=== PATIENT | female | born 1945 | race Caucasian/White ===

== ENCOUNTER 2019-09-24 10:25 | Outpatient (CLI) | payer MEDICARE, SELFPAY ==
--- NOTE | ~2019-09-24 | MM_ITS ---
EXAMINATION: MM screening [facility] [place] HISTORY: Screening mammogram, history of left breast cancer TECHNIQUE: Craniocaudal and mediolateral oblique 3-D tomosynthesis images were obtained and synthetic 2-D images were generated. CAD analysis was submitted and interpreted. COMPARISON: 08/03/2018, 01/30/2018, 01/23/2018, 01/03/2017 BREAST PARENCHYMAL COMPOSITION: There are scattered areas of fibroglandular density. FINDINGS: Lumpectomy changes are again noted in the left breast. There is also skin thickening of the left breast related to radiation change. There is no evidence of suspicious mass, calcification, or architectural distortion to suggest malignancy in either breast. There has been no suspicious interva l change. IMPRESSION: 1. No mammographic evidence of malignancy. 2. Recommend routine screening mammography in one year. BI-RADS Category 2: Benign finding(s). Reviewed, dictated and finalized at location A.
== END 2019-09-24 10:26 | disposition home or self-care (01) ==
LOC: ANHIMG 10:30
PROVIDERS: PCP Physician Assistant; Visit Provider Internal Medicine Medical Oncology
DX: Z12.31 Encounter for screening mammogram for malignant neoplasm of breast (principal)
CPT/HCPCS: 77063; 77067

== ENCOUNTER 2020-08-18 13:05 | Outpatient (CLI) | payer MEDICARE, SELFPAY ==
--- NOTE | ~2020-08-18 | DEXA_ITS ---
Bone Density Report Name: Ny Esteves Age: 75 Sex: Female Ethnicity: White Date of : 1945 Indication: postmenopausal; height loss; cancer; Referring Provider: Lauren, Qasim Study: Bone densitometry was performed. Exam Date: August 18, 2020 Accession number: [id number] Bone Density: Region BMD T-score Z-score Classification AP Spine (L1-L4) 1.160 1.0 3.6 Normal Femoral Neck (Left) 0.732 -1.1 1.1 Osteopenia Total Hip (Left) 0.878 -0.5 1.4 Normal Total Hip Bilateral Avg 0.894 -0.4 1.5 Normal Femoral Neck (Right) 0.704 -1.3 0.9 Osteopenia Total Hip (Right) 0.908 -0.3 1.6 Normal World Health Organization criteria for BMD impression classify patients as: Normal (T-score at or above -1.0), Osteopenia (T-score between -1.0 and -2.5), or Osteoporosis (T-score at or below -2.5). 10-year Fracture Risk(1): Major Osteoporotic Fracture 11% Hip Fracture 2.1% Reported Risk Factors: [place] (), Neck BMD=0.704, BMI=34.8 (1) FRAX(R) Version 3.08. Fracture probability calculated for an untreated patient. Fracture probability may be lower if the patient has received treatment. Previous Exams: Region Exam Age BMD T-score BMD Change BMD Change Date g/cm2 vs Baseline vs Previous AP Spine(L1-L4) 08/18/2020 75 1.160 1.0 0.006(0.5%)# 0.020(1.7%) 01/21/2016 70 1.140 0.8 -0.014(-1.2%)# 0.008(0.7%)# 01/14/2014 68 1.132 0.8 -0.022(-1.9%)# -0.022(-1.9%)# 04/04/2007 62 1.154 1.0 Total Hip(Left) 08/18/2020 75 0.878 -0.5 -0.036(-3.9%)# -0.046(-5.0%)* 01/21/2016 70 0.925 -0.1 0.010(1.1%)# -0.001(-0.1%)# 01/14/2014 68 0.926 -0.1 0.011(1.2%)# 0.011(1.2%)# 04/04/2007 62 0.914 -0.2 Total Hip(Right) 08/18/2020 75 0.908 -0.3 0.008(0.9%)# -0.006(-0.7%) 01/21/2016 70 0.914 -0.2 0.014(1.5%)# -0.019(-2.0%)# 01/14/2014 68 0.933 -0.1 0.033(3.7%)# 0.033(3.7%)# 04/04/2007 62 0.900 -0.3 *Denotes significance at 95% confidence level, LSC for AP Spine = 0.022 g/cm2, LSC for Total Hip = 0.027 g/cm2 Clinical Information Provided by Patient: Has used the following medications: Calcium Has the following medical conditions: Cancer Patient maximum height was 64 Menopause Age: 48 No regular weight bearing exercise Drinks caffeinated beverages Onset of menses at age 9 Number of children 3 Impression: The patient has low bone mass, based on the Right Femoral
== END 2020-08-18 13:06 | disposition home or self-care (01) ==
LOC: ANHIMG 13:07
PROVIDERS: PCP Physician Assistant; Visit Provider Physician Assistant
DX: Z78.0 Asymptomatic menopausal state (principal); M85.89 Other specified disorders of bone density and structure, multiple sites
CPT/HCPCS: 77080

== ENCOUNTER 2020-09-24 13:25 | Outpatient (CLI) | payer MEDICARE, SELFPAY ==
[2020-09-24 14:14] LABS: Basophils Percent Auto 0.5 % (0.2-1.2); Eosinophils Absolute Auto 0.2 K/mm3 (0-0.3); Eosinophils Percent Auto 2.2 % (0-4.4); Hematocrit 44.8 % (37.0-47.0); Hemoglobin 14.3 g/dL (12.0-15.0); Immature Granulocyte Absolute 0.04 K/mm3 (0.00-0.031); Immature Granulocyte Percent A 0.5 % (0-0.5); Lymphocytes Absolute Auto 1.99 K/mm3 (0.9-3.2); Lymphocytes Percent Auto 27.3 % (18.3-44.2); Mean Corpuscular HGB Conc 31.9 g/dl (32-36); Mean Corpuscular Hemoglobin 28.2 pg (26-34); Mean Corpuscular Volume 88.4 fl (80-100); Mean Platelet Volume 10.4 fl (7.4-10.4); Monocytes Absolute Auto 0.8 K/mm3 (0.1-0.6); Monocytes Percent Auto 10.5 % (2.6-8.5); Neutrophils Absolute Auto 4.3 K/mm3 (1.3-6.7); Platelet Count Result 187 k/mm3 (150-375); Red Blood Count 5.07 M/mm3 (4.2-5.4); White Blood Count 7.3 K/mm3 (4.5-10.0)
[2020-09-24 14:28] LABS: Alanine Aminotransferase 25 U/L (4-35); Albumin Level 4.3 g/dL (3.5-5.1); Alkaline Phosphatase 85 U/L (38-126); Anion Gap 6 mmol/L (8-16); Aspartate Amino Transferase 32 U/L (14-36); Bilirubin,Total 0.5 mg/dL (0.2-1.3); Blood Urea Nitrogen 26 mg/dL (7-17); Calcium 9.4 mg/dL (8.4-10.2); Carbon Dioxide 32 mmol/L (22-30); Chloride 103 mmol/L (98-107); Cholesterol 210 mg/dL (0-200); Estimated Glomerular Filt Rate > 60; Glucose 97 mg/dL (65-105); HDL Direct 64 mg/dL; Potassium 3.7 mmol/L (3.4-5.0); Sodium 141 mmol/L (137-145); Triglycerides 195 mg/dL (<150)
[2020-09-24 14:30] LABS: Add Urine Microscopic? YES; Appearance Urine Clear (Clear); Bilirubin Urine Negative (Negative); Color Urine Yellow (Yellow); Glucose Urine UA Negative (Negative); Ketones Urine Negative (Negative); Leukocyte Esterase Ur 1+ LEU/UL (Negative); Mucus Urine Rare /lpf; Nitrate Urine Negative (Negative); Protein Urine Negative (Negative); Specific Grav Ur 1.023 (1.001-1.035); Squamous Epithelial Cell Urine Moderate /hpf (Few)
[2020-09-24 14:36] LABS: Blood Urine Negative (Negative)
[2020-09-24 14:39] LABS: LDL Cholesterol Direct 103 mg/dL
[2020-09-24 16:23] LABS: Hemoglobin A1C 5.6 % (<5.7)
== END 2020-09-24 13:26 | disposition home or self-care (01) ==
LOC: ANHLAB 13:29
PROVIDERS: PCP Physician Assistant; Visit Provider Physician Assistant
DX: E78.5 Hyperlipidemia, unspecified (principal); R73.9 Hyperglycemia, unspecified; R31.21 Asymptomatic microscopic hematuria; Z79.899 Other long term (current) drug therapy
CPT/HCPCS: 36415; 80048; 80061; 80076; 81001; 83036; 84443; 85025; 87077; 87086; 87088

== ENCOUNTER 2020-11-12 14:00 | Outpatient (CLI) | payer MEDICARE, SELFPAY ==
--- NOTE | ~2020-11-12 | MM_ITS ---
EXAMINATION: MM screening [facility] HISTORY: Screening mammogram TECHNIQUE: Craniocaudal and mediolateral oblique 3-D tomosynthesis images were obtained and synthetic 2-D images were generated. CAD analysis was submitted and interpreted. COMPARISON: Serial screening mammogram examinations and right diagnostic mammogram and limited right breast ultrasound examinations dating back to 10/27/2015 BREAST PARENCHYMAL COMPOSITION: There are scattered areas of fibroglandular density. FINDINGS: There is fibroglandular asymmetry; there is history of left partial mastectomy for breast c ancer. Chronic asymmetric prominent right axillary lymph nodes are noted, dating back to 10/27/2015. There is no evidence of interval suspicious mass, calcification, or new architectural distortion to suggest m alignancy in either breast. There has been no suspicious interval change. IMPRESSION: 1. No mammographic evidence of malignancy. 2. Recommend routine screening mammography in one year. BI-RADS Category 2: Benign finding(s). Reviewed, dictated and finalized at location A.
[2020-11-12 15:33] LABS: Add Urine Microscopic? YES; Appearance Urine Clear (Clear); Bilirubin Urine Negative (Negative); Blood Urine Negative (Negative); Color Urine Yellow (Yellow); Glucose Urine UA Negative (Negative); Ketones Urine Negative (Negative); Leukocyte Esterase Ur Negative LEU/UL (NEGATIVE); Nitrate Urine Negative (Negative); Protein Urine Negative (Negative); RBC Urine 0-2 /hpf (0-2); Specific Grav Ur 1.017 (1.001-1.035); Squamous Epithelial Cell Urine Rare /hpf (Few); Urobilinogen Urine Negative mg/dL (<2.0); WBC Urine 0-3 /hpf (0-3)
== END 2020-11-12 14:01 | disposition home or self-care (01) ==
PROVIDERS: PCP Physician Assistant; Visit Provider Physician Assistant
DX: Z12.31 Encounter for screening mammogram for malignant neoplasm of breast (principal); N39.0 Urinary tract infection, site not specified
CPT/HCPCS: 77063; 77067; 81001; 87077; 87086; 87088

== ENCOUNTER 2022-01-12 11:07 | Outpatient (CLI) | payer MEDICARE, SELFPAY ==
[2022-01-12 11:37] LABS: Basophils Absolute Auto 0.1 K/mm3 (0.0-0.1); Eosinophils Absolute Auto 0.1 K/mm3 (0-0.3); Eosinophils Percent Auto 2.7 % (0-4.4); Hematocrit 44.9 % (37.0-47.0); Hemoglobin 14.1 g/dL (12.0-15.0); Immature Granulocyte Absolute 0.04 K/mm3 (0.00-0.031); Immature Granulocyte Percent A 0.8 % (0-0.5); Lymphocytes Absolute Auto 1.69 K/mm3 (0.9-3.2); Lymphocytes Percent Auto 34.5 % (18.3-44.2); Mean Corpuscular HGB Conc 31.4 g/dl (32-36); Mean Corpuscular Hemoglobin 28.2 pg (26-34); Mean Corpuscular Volume 89.8 fl (80-100); Mean Platelet Volume 10.3 fl (7.4-10.4); Monocytes Absolute Auto 0.6 K/mm3 (0.1-0.6); Monocytes Percent Auto 11.6 % (2.6-8.5); Neutrophils Absolute Auto 2.4 K/mm3 (1.3-6.7); Neutrophils Percent Auto 49.4 % (45.5-73.1); Platelet Count Result 194 k/mm3 (150-375); Red Cell Distribution Width 13.2 % (11.5-14.5); White Blood Count 4.9 K/mm3 (4.5-10.0)
[2022-01-12 11:40] LABS: Appearance Urine Clear (Clear); Bilirubin Urine Negative (Negative); Blood Urine Trace-lysed (Negative); Color Urine Yellow (Yellow); Glucose Urine UA Negative (Negative); Ketones Urine Negative (Negative); Leukocyte Esterase Ur Trace LEU/UL (NEGATIVE); Nitrate Urine Negative (Negative); Protein Urine Negative (Negative); Specific Grav Ur 1.025 (1.001-1.035); Urobilinogen Urine 0.2 mg/dL (<2.0); pH Urine 5.5 (5.0-9.0)
[2022-01-12 11:46] LABS: Mucus Urine Rare /lpf; RBC Urine 0-2 /hpf (0-2); Squamous Epithelial Cell Urine Occasional /hpf (Few); WBC Urine 0-3 /hpf (0-3)
[2022-01-12 11:50] LABS: Add Urine Microscopic? YES
[2022-01-12 11:59] LABS: LDL Cholesterol Direct 195 mg/dL
[2022-01-12 12:05] LABS: Alanine Aminotransferase 57 U/L (6-35); Albumin Level 4.5 g/dL (3.5-5.1); Alkaline Phosphatase 103 U/L (38-126); Anion Gap 3 mmol/L (8-16); Aspartate Amino Transferase 49 U/L (14-36); Bilirubin,Total 0.6 mg/dL (0.2-1.3); Blood Urea Nitrogen 19 mg/dL (7-17); Calcium 9.4 mg/dL (8.4-10.2); Carbon Dioxide 31 mmol/L (22-30); Chloride 106 mmol/L (98-107); Estimated Glomerular Filt Rate 54; Glucose 112 mg/dL (65-110); HDL Direct 74 mg/dL; Potassium 4.5 mmol/L (3.4-5.0); Sodium 140 mmol/L (137-145); Triglycerides 85 mg/dL (<150)
[2022-01-12 12:28] LABS: Cholesterol 349 mg/dL (0-200)
[2022-01-12 12:55] LABS: Hepatitis C Virus Antibody Negative (Negative)
== END 2022-01-12 11:08 | disposition home or self-care (01) ==
PROVIDERS: PCP Physician Assistant; Visit Provider Physician Assistant
DX: E78.5 Hyperlipidemia, unspecified (principal); Z11.59 Encounter for screening for other viral diseases; R31.29 Other microscopic hematuria; Z79.899 Other long term (current) drug therapy
CPT/HCPCS: 36415; 80048; 80061; 80076; 81001; 84443; 85025; 86803; 87086; 87088

== ENCOUNTER 2022-05-10 11:17 | Emergency (ER) | payer MEDICARE, SELFPAY ==
--- NOTE | 2022-05-10 11:20 | ED.SKABFB ---
HPI - Skin/Abscess/Foreign Bdy General Chief complaint: Skin/Abscess/Foreign Body Stated complaint: Rash on Body Time Seen by Provider: 05/10/22 11:52 Source: patient and RN notes reviewed Mode of arrival: ambulatory Limitations: no limitations History of Present Illness HPI narrative: 77-year-old female presents to concerns for rash to her chest and axillary area. She reports several day history of rash that is itchy and uncomfortable. She denies known triggers. Denies history of similar rash in the past. She denies any new personal snf care products. She reports she does some gardening she is not aware of any poison khoi contact. She reports she has been using Benadryl cream without relief. She denies general malaise, fatigue, fever, body aches, chills, sweats. MD complaint: rash Related Data Home Medications Medication Instructions Recorded Confirmed spironolactone 100 mg tablet 100 mg PO DIRECTED 05/10/22 05/10/22 Allergies Allergy/AdvReac Type Severity Reaction Status Date / Time No Known Allergies Allergy Unknown Verified 05/10/22 11:28 Review of Systems Review of Systems: CONSTITUTIONAL: Denies malaise, chills, sweats, or fever. EYES: Denies redness, or discharge. ENT: Denies rhinorrhea, congestion, swollen lips, swollen tongue CARDIOVASCULAR: Denies chest pain, palpitations, or edema. RESPIRATORY: Denies cough or dyspnea. GASTROINTESTINAL: Denies abdominal pain, nausea, vomiting SKIN: Reports itchy rash on the chest and the axillary areas MUSCULOSKELETAL: Denies joint pain or myalgia. NEUROLOGIC: Denies headache. All systems reviewed & are unremarkable except as noted in HPI and below [facility] Family History Family History (Updated 05/19/15 @ 15:34 by DOCTOR UNKNOWN) Father Family history of lung cancer, Onset Age: 73 Patient's father is Mother Carcinoma of colon, Onset Age: 70 Patient's mother is Sibling Family history of malignant neoplasm of esophagus, Onset Age: 72 Patient's brother is Social History Social History Smoking status: Never smoker Alcohol intake: never Comments At time of signature, agree with nursing past medical, surgical, social and family history. There is no relevant family history pertinent to the presenting complaint Exam Narrative: GENERAL: Well-appearing, well-nourished, and in no acute distress. HEAD: Normocephalic, atraumatic. EYES: PERRLA, conjunctivae clear, and EOMI. ENT: Mucous membranes moist. Oropharynx without edema, erythema or lesions. NECK: Supple. No lymphadenopathy CHEST: Clear to auscultation. No respiratory distress. HEART: Regular rate and rhythm. SKIN: Warm, dry. Erythematous patch of flaky rash noted to the chest, raised erythema with satellite papules noted under bilateral axillary areas NEURO: Alert and oriented x3. PSYCH: Normal mood and affect Course Course Emergency Course: Patient is aware of diagnosis, understands and agrees to treatment plan. Anticipatory guidance given. Patient agrees to follow-up as directed and is aware of reasons to seek care at the emergency department. Portions of this record may have been created with voice recognition software Level of Care: Express Care Visit Vital Signs Vital signs: Reviewed. MDM - Skin/Abscess/Foreign Bdy MDM Narrative Medical decision making narrative: Does not appear at this time to be erythema multiforme, bullous, SJS, TEN; no evidence at this time to suggest RMSF, endocarditis or Lyme disease; patient looks well, nontoxic and is tolerating oral intake; no neurologic signs or symptoms; no headache, photophobia or neck pain; afebrile; appropriate for initial outpatient treatment; discussed the importance of follow-up, patient agrees; question, viral exanthema, contact dermatitis, allergic dermatitis, eczema, urticaria, shingles. No soft palate or uvula edema, no tongue, lip edema or other mucosal invol
[2022-05-10 11:31] VITALS: BP 124/79; PULSE 77; RESP 18; TEMP 36.5; O2SAT 99
[2022-05-10 11:36] VITALS: BP 124/79; PULSE 77; RESP 18; TEMP 36.5; O2SAT 99
== END 2022-05-10 12:04 | disposition home or self-care (01) ==
PROVIDERS: Emergency Provider Nurse Practitioner; PCP Physician Assistant
DX: L25.9 Unspecified contact dermatitis, unspecified cause (principal)
CPT/HCPCS: 99213; G0463

== ENCOUNTER 2022-06-30 11:42 | Outpatient (CLI) | payer MEDICARE, SELFPAY ==
[2022-06-30 12:19] LABS: Basophils Absolute Auto 0.1 K/mm3 (0.0-0.1); Basophils Percent Auto 0.6 % (0.2-1.2); Eosinophils Absolute Auto 0.3 K/mm3 (0-0.3); Eosinophils Percent Auto 3.3 % (0-4.4); Hematocrit 43.5 % (37.0-47.0); Hemoglobin 14.1 g/dL (12.0-15.0); Immature Granulocyte Absolute 0.06 K/mm3 (0.00-0.031); Immature Granulocyte Percent A 0.8 % (0-0.5); Lymphocytes Absolute Auto 1.55 K/mm3 (0.9-3.2); Lymphocytes Percent Auto 19.9 % (18.3-44.2); Mean Corpuscular HGB Conc 32.4 g/dl (32-36); Mean Corpuscular Volume 89.3 fl (80-100); Mean Platelet Volume 10.1 fl (7.4-10.4); Monocytes Absolute Auto 0.7 K/mm3 (0.1-0.6); Monocytes Percent Auto 8.5 % (2.6-8.5); Neutrophils Absolute Auto 5.2 K/mm3 (1.3-6.7); Neutrophils Percent Auto 66.9 % (45.5-73.1); Platelet Count Result 201 k/mm3 (150-375); Red Blood Count 4.87 M/mm3 (4.2-5.4); Red Cell Distribution Width 12.7 % (11.5-14.5); White Blood Count 7.8 K/mm3 (4.5-10.0)
[2022-06-30 12:27] LABS: Alanine Aminotransferase 29 U/L (6-35); Albumin Level 4.2 g/dL (3.5-5.1); Alkaline Phosphatase 93 U/L (38-126); Anion Gap 5 mmol/L (8-16); Aspartate Amino Transferase 30 U/L (14-36); Bilirubin,Total 0.8 mg/dL (0.2-1.3); Blood Urea Nitrogen 20 mg/dL (7-17); Calcium 8.8 mg/dL (8.4-10.2); Carbon Dioxide 30 mmol/L (22-30); Chloride 104 mmol/L (98-107); Cholesterol 277 mg/dL (0-200); Estimated Glomerular Filt Rate 60; Glucose 161 mg/dL (65-110); HDL Direct 63 mg/dL; Potassium 3.8 mmol/L (3.4-5.0); Sodium 139 mmol/L (137-145); Triglycerides 140 mg/dL (<150)
[2022-06-30 12:38] LABS: LDL Cholesterol Direct 140 mg/dL
[2022-06-30 13:33] LABS: Folic Acid 13.2 ng/mL (2.76->20)
[2022-07-01 12:16] LABS: Add Urine Microscopic? YES; Appearance Urine Clear (Clear); Bilirubin Urine Negative (Negative); Blood Urine 2+ (Negative); Color Urine Light Yellow (Yellow); Glucose Urine UA Negative (Negative); Ketones Urine Negative (Negative); Leukocyte Esterase Ur 3+ LEU/UL (NEGATIVE); Nitrate Urine Positive (Negative); Protein Urine Trace mg/dL (Negative); Specific Grav Ur 1.025 (1.001-1.035); Urobilinogen Urine 0.2 mg/dL (<2.0); pH Urine 5.5 (5.0-9.0)
[2022-07-01 12:27] LABS: Bacteria Urine Trace /hpf; Mucus Urine Rare /lpf; RBC Urine 21-50 /hpf (0-2); Squamous Epithelial Cell Urine Many /hpf (Few); WBC Clumps Urine Present /HPF; WBC Urine >75 /hpf (0-3)
== END 2022-06-30 11:43 | disposition home or self-care (01) ==
LOC: ANHLAB 11:49
PROVIDERS: PCP Physician Assistant; Visit Provider Physician Assistant
DX: E78.5 Hyperlipidemia, unspecified (principal); R41.3 Other amnesia; Z11.59 Encounter for screening for other viral diseases; R31.29 Other microscopic hematuria; Z79.899 Other long term (current) drug therapy
CPT/HCPCS: 80048; 80061; 80076; 81001; 82607; 82746; 84443; 85025; 87077; 87086; 87186

== ENCOUNTER 2022-11-03 12:36 | Outpatient (CLI) | payer MEDICARE, SELFPAY ==
--- NOTE | ~2022-11-03 | MM_ITS ---
EXAMINATION: MM screening [facility] [place] HISTORY: Screening mammogram TECHNIQUE: Craniocaudal and mediolateral oblique 3-D tomosynthesis images were obtained and synthetic 2-D images were generated. CAD analysis was submitted and interpreted. COMPARISON: 11/12/2020, 09/24/2019, 08/03/2018 BREAST PARENCHYMAL COMPOSITION: There are scattered areas of fibroglandular density. FINDINGS: No suspicious mass, calcification, or architectural distortion are identified in either jasmina ast to suggest malignancy. There has been no suspicious interval change. IMPRESSION: 1. No mammographic evidence of malignancy. 2. Recommend routine screening mammography in one year. BI-RADS Category 1: Negative Reviewed, dictated and finalized at location A.
== END 2022-11-03 12:37 | disposition home or self-care (01) ==
LOC: ANHIMG 12:37
PROVIDERS: PCP Physician Assistant; Visit Provider Physician Assistant
DX: Z12.31 Encounter for screening mammogram for malignant neoplasm of breast (principal)
CPT/HCPCS: 77063; 77067

== ENCOUNTER 2023-01-21 13:23 | Outpatient (CLI) | payer MEDICARE, SELFPAY ==
[2023-01-21 14:05] LABS: Basophils Absolute Auto 0.1 K/mm3 (0.0-0.1); Basophils Percent Auto 0.9 % (0.2-1.2); Eosinophils Absolute Auto 0.2 K/mm3 (0-0.3); Hematocrit 44.5 % (37.0-47.0); Hemoglobin 14.3 g/dL (12.0-15.0); Immature Granulocyte Absolute 0.04 K/mm3 (0.00-0.031); Immature Granulocyte Percent A 0.7 % (0-0.5); Mean Corpuscular HGB Conc 32.1 g/dl (32-36); Mean Corpuscular Hemoglobin 28.5 pg (26-34); Mean Corpuscular Volume 88.6 fl (80-100); Mean Platelet Volume 10.1 fl (7.4-10.4); Monocytes Absolute Auto 0.5 K/mm3 (0.1-0.6); Monocytes Percent Auto 9.4 % (2.6-8.5); Platelet Count Result 190 k/mm3 (150-375); Red Blood Count 5.02 M/mm3 (4.2-5.4); Red Cell Distribution Width 13.1 % (11.5-14.5); White Blood Count 5.6 K/mm3 (4.5-10.0)
[2023-01-21 14:12] LABS: Appearance Urine Cloudy (Clear); Bacteria Urine None Seen /hpf; Bilirubin Urine Negative (Negative); Blood Urine Negative (Negative); Color Urine Yellow (Yellow); Glucose Urine UA Negative (Negative); Ketones Urine Negative (Negative); Leukocyte Esterase Ur 2+ LEU/UL (NEGATIVE); Nitrate Urine Negative (Negative); Non Pathogenic Casts 0-2; Protein Urine Negative (Negative); RBC Urine 0-2 /hpf (0-2); Squamous Epithelial Cell Urine Few /hpf (Few); pH Urine 5.5 (5.0-9.0)
[2023-01-21 14:12] LABS: Alanine Aminotransferase 40 U/L (6-35); Albumin Level 4.5 g/dL (3.5-5.1); Alkaline Phosphatase 82 U/L (38-126); Anion Gap 5 mmol/L (8-16); Aspartate Amino Transferase 33 U/L (14-36); Bilirubin,Total 0.7 mg/dL (0.2-1.3); Blood Urea Nitrogen 22 mg/dL (7-17); Calcium 9.9 mg/dL (8.4-10.2); Carbon Dioxide 32 mmol/L (22-30); Chloride 102 mmol/L (98-107); Estimated Glomerular Filt Rate 53; Glucose 113 mg/dL (65-110); Potassium 4.6 mmol/L (3.4-5.0); Sodium 139 mmol/L (137-145)
[2023-01-21 14:15] LABS: Add Urine Microscopic? YES
[2023-01-21 15:03] LABS: Hemoglobin A1C 5.9 % (<5.7)
== END 2023-01-21 13:24 | disposition home or self-care (01) ==
PROVIDERS: PCP Physician Assistant; Visit Provider Physician Assistant
DX: R41.3 Other amnesia (principal); R73.9 Hyperglycemia, unspecified; R39.9 Unspecified symptoms and signs involving the genitourinary system; Z79.899 Other long term (current) drug therapy
CPT/HCPCS: 36415; 80048; 80076; 81001; 83036; 84443; 85025; 87077; 87086; 87147; 87186

== ENCOUNTER 2023-12-05 12:18 | Emergency (ER) | payer MEDICARE, SELFPAY ==
[2023-12-05 12:35] VITALS: BP 135/81; PULSE 77; RESP 16; TEMP 37.2; O2SAT 99
--- NOTE | 2023-12-05 12:53 | ED.SKABFB ---
HPI - Skin/Abscess/Foreign Bdy General Chief complaint: Skin/Abscess/Foreign Body Stated complaint: right side upper back spider bite Time Seen by Provider: 12/05/23 12:48 Source: patient and RN notes reviewed Mode of arrival: ambulatory Limitations: no limitations History of Present Illness HPI narrative: Patient presents today complaining of a possible spider bite to her right upper back 2 days ago. No OTC treatment prior to arrival. Patient unsure of history of staph, abscess, MRSA. Related Data Home Medications Medication Instructions Recorded Confirmed spironolactone 100 mg tablet 100 mg PO DIRECTED 05/10/22 12/05/23 donepezil 5 mg tablet 5 mg PO DAILY 12/05/23 12/05/23 memantine 5 mg tablet 5 mg PO DIRECTED 12/05/23 12/05/23 Allergies Allergy/AdvReac Type Severity Reaction Status Date / Time No Known Allergies Allergy Unknown Verified 12/05/23 12:20 Review of Systems Review of Systems: CONSTITUTIONAL: Denies body aches, fever, chills, or sweats. EYES: Denies visual changes, redness, or discharge. ENT: Denies rhinorrhea, congestion, sore throat, or otalgia. CARDIOVASCULAR: Denies chest pain, palpitations, or edema. RESPIRATORY: Denies cough or dyspnea. GASTROINTESTINAL: Denies abdominal pain, nausea, vomiting, or diarrhea. GENITOURINARY: Denies dysuria or hematuria. SKIN: + insect bite to right back MUSCULOSKELETAL: Denies back pain, joint pain, or myalgia. NEUROLOGIC: Denies headache, numbness, tingling, or weakness. PSYCH: Denies depression or anxiety. [facility] Family History Family History Father Family history of lung cancer, Onset Age: 73 Patient's father is Mother Carcinoma of colon, Onset Age: 70 Patient's mother is Sibling Family history of malignant neoplasm of esophagus, Onset Age: 72 Patient's brother is Social History Social History Smoking status: Never smoker Alcohol intake: never Comments At time of signature, I have reviewed and agree with nursing past medical, surgical, social and family history unless otherwise noted. Please see nursing chart for further information. There is no relevant family history pertinent to the presenting complaint Exam Narrative: GENERAL: Well-appearing, well-nourished, and in no acute distress. HEAD: Normocephalic, atraumatic. EYES: EOMI. No redness or drainage. Conjunctivae normal. ENT: Mucous membranes pink and moist. NECK: Normal AROM. CHEST: No respiratory distress. EXTREMITIES: Normal range of motion. No edema. SKIN: Warm, dry, no rash. Capillary refill normal. Normal skin turgor. Approximately 4 x 4 cm area of erythema and fluctuance with multiple pustules to the right upper back, tender to palpation. NEURO: No focal deficits. Alert and oriented x3. Gait steady. PSYCH: Normal affect. No signs of depression or anxiety. Course Course Level of Care: Express Care Visit Vital Signs Vital signs: Vital Signs Temperature 99 F 12/05/23 12:35 Pulse Rate 77 12/05/23 12:35 Respiratory Rate 16 12/05/23 12:35 Blood Pressure 135/81 12/05/23 12:35 Pulse Oximetry 99 12/05/23 12:35 Oxygen Delivery Room Air 12/05/23 12:35 Temperature 99 F 12/05/23 12:35 Pulse Rate 77 12/05/23 12:35 Respiratory Rate 16 12/05/23 12:35 Blood Pressure 135/81 12/05/23 12:35 Pulse Oximetry 99 12/05/23 12:35 Oxygen Delivery Room Air 12/05/23 12:35 Reviewed Procedures Abscess I/D back: Date of Incision: 12/05/23 Time of Incision: 13:10 Side (if applicable): right Local Anesthetic: lidocaine 1% and with epi Amount of anesthesia used (mL): 5 Technique: incised with #11 blade Amount of fluid expressed (mL): 5 Irrigation: Yes Packing used?: iodoform I&D
== END 2023-12-05 13:30 | disposition home or self-care (01) ==
PROVIDERS: Emergency Provider Nurse Practitioner; PCP Physician Assistant
DX: L02.212 Cutaneous abscess of back [any part, except buttock and flank] (principal); F03.90 Unspecified dementia, unspecified severity, without behavioral disturbance, psychotic disturbance, mood disturbance, and anxiety; I10 Essential (primary) hypertension; Z85.3 Personal history of malignant neoplasm of breast
CPT/HCPCS: 10061; 99213; G0463

== ENCOUNTER 2025-03-06 18:48 | Emergency (ER) | payer MEDICARE, SELFPAY ==
--- OUTSIDE RECORDS SUMMARY | 2008-07-12 03:45 | XMS_ITS | Continuity of Care Document ---
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 No Information Dec-2 8 Celestina Wells. [address] , [address], [place], [place], [facility], [place]. tel:[phone] [facility], [address] [place] [address] [address], [place], [place], [id number], [place] tel:[phone] [facility] No Information Dec-2 200 8 [facility] [employer] . [address] [facility], [facility] [address], [place], [place], [id number], [place]. tel:[phone] Referring Provider: Priscilla Cole, [address], [place], [address]. tel:[phone] sulting Provider: Alexandria Krishnan, [address] [place], [address]. tel:[phone] Family History Family Member Type Diagnosis Age At Onset No Information Payers Payer name Insurance type Covered alliance party ID Authoriza tion(s) [place] [id number] Social History Type Description Quantity Date Captured Comments Sex Female Smoking Status No Information Chief Complaint And Reason For Visit No Information Reason For Referral Reason For Referral No Information History Of Present Illness Encounter Date Complaint History Of Prese nt Illness No Information Functional Status Date Functional Assessmen t No Information Instructions Date Instruction Additional Infor mation No Information Assessments Type Assessment Date No Information Patient Care Teams Name Effective Dates (start - stop) Status Members No Information
--- OUTSIDE RECORDS SUMMARY | 2008-07-12 03:45 | XMS_ITS | Continuity of Care Document ---
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 Name Role Phone Priscilla Oscar Unavailable Unavailable Procedures Procedure Date Eye Exam, New Patient Refraction BF Plastic Sphcyl [place] To +/-4d .12-2d Frames Deluxe Anti-reflective Coating Tax - Medical Advance Directives Directive Yes / No Effective Date File Name No Information Encounters Encounter Description Practice Location Reason(s) For Visit Diagnoses Date Provider Providers Copied on Encounter [facility], [address] [place] [address] [address] [facility] [address], [place], [place], [id number], tel:[phone] SEC [facility] No Information Dec-2 8 Celestina Wells. [address] [facility] [facility] [facility] , [address], [place], [place], [facility], [place]. tel:[phone] [facility], [address] [place] [address] [address], [place], [place], [id number], [place] tel:[phone] SEC [facility] No Information Dec-2 200 8 [facility] [employer] . [address] [facility], [facility] [address], [place], [place], [id number], [place]. tel:[phone] Referring Provider: Priscilla Cole, [address], [place], [address]. tel:[phone] sulting Provider: Alexandria Krishnan, [address] [place], [address]. tel:[phone] Family History Family Member Type Diagnosis Age At Onset No Information Payers Payer name Insurance type Covered constitution party ID Authoriza tion(s) [place] [id number] Social History Type Description Quantity Date Captured [...]
--- NOTE | ~2025-03-06 | XR_ITS ---
XR foot RT 2V 03/06/2025 19:43 Indication: Foreign body penetration Procedure: 2 views right foot Comparison: No prior studies for comparison. Findings: There is a screw involving the plantar soft tissues. No evidence for osseous involvement. 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 There are small osteochondromas originating from the second and fourth metatarsals. Osteopenia. 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 Impression: 1: Small radiopaque screw overlies the plantar soft tissues at the level of the second metatarsal. No evidence for underlying osseous involvement. Reviewed, dictated and finalized at location A. Impression: 1: Small radiopaque screw overlies the plantar soft tissues at the level of the second metatarsal. No evidence for underlying osseous involvement.
--- OUTSIDE RECORDS SUMMARY | 2025-03-06 18:50 | XMS_ITS | Clinical Summary ---
Author Organization [facility] Address [address] [place] [address] Phone Care Team Providers Care Director Speech Language Name Role Phone Gali Aguilar Primary Care Pr ovider Emil Presley MD Unavailable [phone] Allergies No known active allergies Medications atorvastatin (LIPITOR) 10 mg tablet TK 1 T PO QD 0 8 Active triamcinolone (KENALOG) 0.1 % cream JOSI A THIN LAYER TO LEGS OR HANDS BID PRN ONLY 0 8 Active flaxseed oil oil Active calcium citrate-vitamin D3 (CITRACAL WITH D) 315 mg- 250 unit per tablet Take 1 tablet by mouth daily Active anastrozole (ARIMIDEX) 1 mg tablet anastrozole 1 mg tablet Active betamethasone, augmented, (DIPROLENE) 0.05 % ointment betamethasone, augmented 0.05 % topical ointment APPLY TO THE HANDS QHS PRN Active Active Problems Problem Noted Date Diagnosed Date Malignant neoplasm of lower- outer quadrant of left breast of female, estrogen receptor positive 11/26/2013 Malignant lymphoma, small lymphocytic 11/26/2013 Immunizations Immunization Administration Dates Next Due Influenza, Trivalent, High D ose, Split, Preservative Free, Intramuscular 05/21/2019,06/06/2018,05/30/2017,05/09 Influenza, Trivalent, IM (MDV) 04/29/2014,2012 Influenza, Trivalent, Preser vative Free, Intramuscular 06/16/2015 Pneumococcal, Unspecified 07/18/2015 ZOSTER LIVE 01/04/2017,07/18/2015 ZOSTER Recombinant 07/20/2019,05/21/2019 Zoster, unspecified 07/20/2019,05/21/2019 Surgical History Surgery Date Site/Laterality Comments BREAST BIOPSY BREAST LUMPECTOMY COLONOSCOPY Medical History Medical History Date Comments Breast cancer (HCC) Malignant lymphoma, small lymphocytic 09/13/2019 Family History Medical History Relation Name Comments Esophageal cancer Brother Lung cancer Father Colon cancer Mother Relation Name Status Comments Brother Father Mother Social History Tobacco Use Types Packs/Day Years Used Date Smoking Tobacco: Never Smokeless Tobacco: Never Alcohol Use Standard Drinks/Week Comments No 0 (1 standard drink = 0.6 oz pur e alcohol) Personal Safety Answer Date Recorded Getting School Help Needed Not on file 10/01 Comments Unknown Sex and Gender Information Value Date Recorded Sex Assigned at Not on file Legal Sex Female 11:46 AM DOUBLE CUTTER Gender Identity Not on file Sexual Orientation Not on file Obstetrics History Last Filed Vital Signs Vital Sign Reading Time Taken Comments Blood Pressure 131/82 09/13/2019 1:58 PM DOUBLE CUTTER Pulse 68 09/13/2019 1:58 PM DOUBLE CUTTER Temperature 36.6 C (97.8 F) 09/13/2019 1:58 PM DOUBLE CUTTER Respiratory Rate 16 09/13/2019 1:58 PM DOUBLE CUTTER Oxygen Saturation 99% 09/13/2019 1:58 PM DOUBLE CUTTER Inhaled Oxygen Concentration - - Weight 79.4 kg (175 lb) 09/13/2019 1:58 PM DOUBLE CUTTER Height 157.5 cm (5' 2) 09/13/2019 1:58 PM DOUBLE CUTTER Body Mass Index 32.01 09/13/2019 1:58 PM DOUBLE CUTTER Plan of Treatment Not on file Insurance MEDICARE ADVANTAGE Care Teams Director Speech Language Relationship Specialty Start Date End Date Gali Aguilar PA PCP - General Physician 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
[2025-03-06 18:55] VITALS: BP 137/78; PULSE 85; RESP 18; TEMP 36.7; O2SAT 95
--- NOTE | 2025-03-06 19:29 | ED_ITS ---
HPI - Skin/Abscess/Foreign Bdy General Chief complaint: Skin/Abscess/Foreign Body <Linnea Hart PA-C - Last Filed: 03/06/25 21:03> Stated complaint: FB in right foot-stepped on screw <Linnea Hart PA-C - Last Filed: 03/06/25 21:03> Time Seen by Provider: 03/06/25 19:13 <Linnea Hart PA-C - Last Filed: 03/06/25 21:03> History of Present Illness HPI narrative: 79-year-old female presents with her at bedside for a screw to the bottom of her right foot. Patient was reportedly watering her plants barefoot outside when she stepped on a screw. Her states he tried to unscrew it without success. Last Tdap unknown. <Linnea Hart PA-C - Last Filed: 03/06/25 21:03> Related Data Home medications: Home Medications ?Medication ?Instructions ?Recorded ?Confirmed ?Last Taken ?Type spironolactone 100 mg tablet 100 mg PO DIRECTED 12/05/23 Unknown History donepezil 5 mg tablet 5 mg PO DAILY 12/05/2312/04 Unknown History memantine 5 mg tablet 5 mg PO DIRECTED 12/05/23 12/05/23 Unknown History <Linnea Hart PA-C - Last Filed: 03/06/25 21:03> Allergies/Adverse reactions: Allergies Allergy/AdvReac Type Severity Reaction Status Date / Time No Known Allergies Allergy Unknown Verified 03/06/25 18:49 <Linnea Hart PA-C - Last Filed: 03/06/25 21:03> Review of Systems Review of Systems: All systems reviewed & are unremarkable except as noted in HPI and below <Linnea Hart PA-C - Last Filed: 03/06/25 21:03> PMFSH Family History Family History: Family History Father Family history of lung cancer, Onset Age: 73 Patient's father is Mother Carcinoma of colon, Onset Age: 70 Patient's mother is Sibling Family history of malignant neoplasm of esophagus, Onset Age: 72 Patient's brother is <Linnea Hart PA-C - Last Filed: 03/06/25 21:03> Social History Social History: Social History Smoking status: Never smoker Alcohol intake: never <Linnea Hart PA-C - Last Filed: 03/06/25 21:03> Exam Narrative: GENERAL: Well-appearing, well-nourished, and in no acute distress. HEAD: Normocephalic, atraumatic. ENT: Nares clear, no rhinorrhea or epistaxis. Mucous membranes moist. NECK: Supple. CHEST: Clear to auscultation. No respiratory distress. HEART: Regular rate and rhythm. No murmur heard. Normal peripheral pulses. EXTREMITIES: Normal range of motion. No edema. SKIN: Screw imbedded in the plantar aspect of the right foot, no active bleeding. No surrounding erythema or induration, no drainage. Patient is able wiggle toes. DP pulses 2+. Cap refill less than 2. Sensation intact. NEURO: No focal deficits. Alert and oriented x3 <Linnea Hart PA-C - Last Filed: 03/06/25 21:03> Course COMMUNITY SERVICES MANAGER/PA Physician Supervision i have reviewed the chart agree with management. <Damien Blanco MD - Last Filed: 03/06/25 21:22> Vital Signs Vital signs: Vital Signs Temperature 36.7 C 03/06/25 18:55 Pulse Rate 85 03/06/25 18:55 Respiratory Rate 18 03/06/25 18:55 Blood Pressure 137/78 03/06/25 18:55 Pulse Oximetry 95 03/06/25 18:55 Oxygen Delivery Room Air 03/06/25 18:55 Temperature 36.7 C 03/06/25 19:38 Pulse Rate 77 03/06/25 19:38 Respiratory Rate 16 03/06/25 19:38 Blood Pressure 122/73 03/06/25 19:38 Pulse Oximetry 98 03/06/25 19:38 Oxygen Delivery Room Air 03/06/25 18:55 <Linnea Hart PA-C - Last Filed: 03/06/25 21:03> Vital Signs Temperature 36.7 C 03/06/25 18:55 Pulse Rate 85 03/06/25 18:55 Respiratory Rate 18 03/06/25 18:55 Blood Pressure 137/78 03/06/25 18:55 Pulse Oximetry 95 03/06/25 18:55 Oxygen Delivery Room Air 03/06/25 18:55 Temperature 36.7 C 03/06/25 19:38 Pulse Rate 77 03/06/25 19:38 Respiratory Rate 16 03/06/25 19:38 Blood Pressure 122/73 03/06/25 19:38 Pulse Oximetry 98 03/06/25 19:38 Oxygen Delivery Room Air 03/06/25 18:55 <Damien Blanco MD - Last Filed: 03/06/25 21:22> Procedures Foreign Body Removal Foreign Body #1: Foreign Body Removal Date: 03/06/25 <Linnea Hart PA-C - Last Filed: 03/06/25 21:03> Foreign Body Removal Time: 20:59 <Linnea Hart PA-C - Last Filed: 03/06/25 21:03> Time Out Performed: yes <Linnea Hart PA-C - Last Filed: 03/06/25 21:03> Site: right <Linnea Hart PA-C - Last Filed: 03/06/25 21:03> Description of foreign body: other (screw) <AYESHA Keller Last Filed: 03/06/25 21:03> Sedation/Analgesia: none <Linnea Hart PA-C - Last Filed: 03/06/25 21:03> Technique: manual removal <AYESHA Keller Last Filed: 03/06/25 21:03> Confirmed by:: direct visualization <AYESHA Keller Last Filed: 03/06/25 21:03> Complications: none <AYESHA Keller Last Filed: 03/06/25 21:03> Post-procedure exam: awake, alert <Linnea Hart PA-C - Last Filed: 03/06/25 21:03> Neurovascular: normal capillary fill, distal light touch sensation intact, distal motor function normal, no signs of compartment syndrome and no change from pre- procedure <Linnea Hart PA-C - Last Filed: 03/06/25 21:03> MDM - Skin/Abscess/Foreign Bdy [facility] Narrative Medical decision making narrative: 79-year-old female presents with her at bedside after stepping on a screw 30 minutes prior to arrival. Patient presents with an imbedded screw to the plantar aspect of her right foot. She was not wearing shoes at the time of the incident. Vitals are stable. Exam is notable for the above. X-ray shows a small radiopaque screw overlies the plantar soft tissues at the level of the 2nd metatarsal with no evidence for underlying osseous involvement. Local anesthetic applied and screw removed without complications as noted above. Scr ew examined post removal and is intact. Puncture wound irrigated with normal saline and foot soaked and a saline Betadine solution. Wound dressed with antibiotic ointment and bandage. Patient will be started on Keflex (pseudomonas coverage not indicated as patient was barefoot.) Discussed wound care, follow- up with PCP and strict ED return precautions. Patient is agreeable with the plan and verbalized understanding. Discharged in stable condition. <Linnea Hart PA-C - Last Filed: 03/06/25 21:03> Discharge Plan Discharge Clinical Impression: Foreign body <Linnea Hart PA-C - Last Filed: 03/06/25 21:03> Patient Disposition: Home <AYESHA Keller Last Filed: 03/06/25 21:03> Condition: Stable <AYESHA Keller Last Filed: 03/06/25 21:03> Instructions: Antibiotic Form, Soft Tissue Foreign Body (ED), Puncture Wound (DC) <AYESHA Keller Last Filed: 03/06/25 21:03> Additional Instructions: Please keep the area clean and dry. Change dressings twice daily as discussed. Take antibiotics as directed. Follow-up closely with your primary care provider. Return to the emergency department if you develop a fever, surrounding redness, drainage or other concerning symptoms. <Linnea Hart PA-C - Last Filed: 03/06/25 21:03> Patient Language: Sammarinese <Linnea Hart PA-C - Last Filed: 03/06/25 21:03> Prescriptions: New cephalexin 500 mg capsule 500 mg PO Q8H 5 Days Qty: 15 0RF No Action spironolactone 100 mg tablet 100 mg PO DIRECTED donepezil 5 mg tablet 5 mg PO DAILY memantine 5 mg tablet 5 mg PO DIRECTED cephalexin 500 mg capsule 500 mg PO Q6H 7 Days Qty: 28 0RF <Linnea Hart PA-C - Last Filed: 03/06/25 21:03> Follow-up/Referrals: Lauren,AYESHA Talbert [Primary Care Provider, Unknown] <Linnea Hart PA-C - Last Filed: 03/06/25 21:03>
--- OUTSIDE RECORDS SUMMARY | 2025-03-06 19:30 | XMS_ITS | Clinical Summary ---
Author Organization [facility] Address [address] [place] [address] Phone Care Team Providers Care Insurance Account Manager Name Role Phone Gali Aguilar Primary Care Pr ovider Emil Presley MD Unavailable [phone] Allergies No known active allergies Medications [...] on file Legal Sex Female 11:46 AM [employer]TER [employer] Gender Identity Not on file Sexual Orientation Not on file Obstetrics History Last Filed Vital Signs Vital Sign Reading Time Taken Comments Blood Pressure 131/82 09/13/2019 1:58 PM [employer]TER LO[employer] Pulse 68 09/13/2019 1:58 PM [employer]ELTER LO[employer] Temperature 36.6 C (97.8 F) 09/13/2019 1:58 PM 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 LO[employer]ER Respiratory Rate 16 09/13/2019 1:58 PM MELTER LO[employer]ER Oxygen Saturation 99% 09/13/2019 1:58 PM [employer]ELTER LO[employer]ER Inhaled Oxygen Concentration - - Weight 79.4 kg (175 lb) 09/13/2019 1:58 PM MELTER LO[employer] Height 157.5 cm (5' 2) 09/13/2019 1:58 PM MELTER LO[employer]ER Body Mass Index 32.01 09/13/2019 1:58 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
--- NOTE | 2025-03-06 19:34 | PC.NURSE ---
Received report from Maynor Koenig for cont. of care. Pt sitting on W/C c/o 08/27 R foot pain, pt has a screw to bottom of her foot. Per pt was water her plants outside without shoes and stepped on it. Pt doesnt know last when her last T-DAP was.
[2025-03-06 19:38] VITALS: BP 122/73; PULSE 77; RESP 16; TEMP 36.7; O2SAT 98
[2025-03-06] MEDS: HYDROcodone/acetaminophen (*CRX) 5-325 MG TABLET 1 TAB PO (19:46)
[2025-03-06] MEDS: TETANUS,DIPHTHERIA,AC PERTUSSIS ADULT (0.5 ML) BOOSTRIX IM (19:48)
[2025-03-06] MEDS: CEPHALEXIN 500 MG CAPSULE PO (21:43)
== END 2025-03-06 21:50 | disposition home or self-care (01) ==
PROVIDERS: Emergency Provider Physician Assistant; PCP Physician Assistant
DX: S91.341A Puncture wound with foreign body, right foot, initial encounter (principal); Z23 Encounter for immunization; W45.8XXA Other foreign body or object entering through skin, initial encounter; Y93.H2 Activity, gardening and landscaping
CPT/HCPCS: 28190; 73620; 90471; 90715; 99283; A9270

== ENCOUNTER 2025-07-05 11:06 | Outpatient (CLI) | payer MEDICARE, SELFPAY ==
--- NOTE | ~2025-07-05 | US_ITS ---
EXAMINATION: US renal BI DATE: 07/05/2025 11:37 INDICATION: Other specified abnormal findings of blood chemistry TECHNIQUE: Multiple ultrasound grayscale images of the kidneys were obtained. COMPARISON: None. FINDINGS: The right kidney measures 8.9 x 4.5 x 4.6 cm. The left kidney measures 9.2 x 4.8 x 3.9 cm. The kidneys demonstrate normal echogenicity. There is no hydronephrosis in either kidney. No stones identified. The bladder is normal. IMPRESSION: 1. Normal kidneys without hydronephrosis. Reviewed, dictated and finalized at location A. K ENGRAVER
== END 2025-07-05 11:07 | disposition home or self-care (01) ==
LOC: MICIMG 11:07
PROVIDERS: PCP Physician Assistant; Visit Provider Physician Assistant
DX: R79.89 Other specified abnormal findings of blood chemistry (principal)
CPT/HCPCS: 76770